=== PATIENT | male | born 1945 | race Caucasian/White ===

== ENCOUNTER 2017-06-25 08:11 | Emergency (ER) | payer MEDICARE, BC ==
--- NOTE | 2017-06-25 14:17 | CT ---
Head CT Technique: Multiple axial sections through the brain were obtained. Intravenous contrast was not utilized. Comparison: No previous intracranial imaging. Findings: Ventricles along with basal cisterns and sulci over the convexities are mildly prominent. Minimal diminished density noted within the periventricular white matter compatible with very slight small vessel ischemic demyelination change. No other abnormal parenchymal densities are seen. No evidence of intracranial hemorrhage. No midline shift or mass effect is seen. Atherosclerotic calcification is seen within the vertebral vessels and carotid siphon. Mild mucosal thickening is seen within the maxillary and ethmoid sinuses as well as frontal sinus compatible with mild chronic sinusitis. No acute calvarial abnormality is seen. Impression: 1. Mild senescent change as described above. 2. Mild chronic-appearing sinusitis. Diagnostic code #2 I agree with preliminary report issued by [facility] ([facility] preliminary report dictated on 06/25/17, 10:21 AM Central Time),
== END 2017-06-25 10:42 ==
LOC: JD.ED 08:11
DX: R42 Dizziness and giddiness (principal)
CPT/HCPCS: 36415; 70450; 80053; 84484; 85025; 99284; A9270; 99283

== ENCOUNTER 2019-06-22 20:44 | Emergency (ER) | payer MEDICARE, BC ==
[2019-06-22] MEDS ORDERED: cefTRIAXone 1 GM Vial IM ONE (22:27)
[2019-06-22] MEDS ORDERED: Triamcinolone Acetonide 40 MG/ML 1 ML MDV INJECT ONE (22:27)
--- NOTE | 2019-06-22 22:33 | EDM.PDOC ---
ED HPI GENERAL MEDICAL PROBLEM - General Chief Complaint: Respiratory Problem Stated Complaint: COUGHING/SOB Time Seen by Provider: 06/22/19 21:56 Source of Information: Reports: Patient History Limitations: Reports: No Limitations - History of Present Illness INITIAL COMMENTS - FREE TEXT/NARRATIVE: Vicious unfortunate 73-year-old male who presents emergency department complaining of cough for 2 weeks. Patient reports his sinus pressure and postnasal drip and cough for the past 2 weeks. Patient ports assuming he coughs so hard he "lost his breath" C and no vomiting no fever or chills no chest pain positive productive yellow sputum - Related Data Allergies Allergy/AdvReac Type Severity Reaction Status Date / Time No Known Allergies Allergy Verified 06/25/17 12:25 Home Meds: Home Meds Cefdinir 300 mg PO BID #14 capsule 06/22/19 [Rx] Past Medical History Cardiovascular History: Reports: High Cholesterol, Hypertension Other Neuro History: stroke with left side weakness Social & Family History - Tobacco Use Smoking Status *Q: Never Smoker - Caffeine Use Caffeine Use: Reports: Coffee, Tea - Recreational Drug Use Recreational Drug Use: No ED ROS GENERAL - Review of Systems Review Of Systems: See Below Constitutional: Denies: Fever, Chills HEENT: Reports: Rhinitis Respiratory: Reports: Cough, Sputum ED EXAM, GENERAL - Physical Exam Exam: See Below Exam Limited By: No Limitations General Appearance: Alert, WD/WN, Mild Distress Ears: Other (Bilateral TMs dull) Nose: Normal Inspection, Normal Mucosa, No Blood, Other (Bilateral maxillary sinus positive transillumination) Throat/Mouth: Other (Mild posterior pharynx erythema with postnasal drainage) Neck: Normal Inspection, Supple, Non-Tender, Full Range of Motion Respiratory/Chest: No Respiratory Distress, Lungs Clear, Normal Breath Sounds, No Accessory Muscle Use, Chest Non-Tender Cardiovascular: Normal Peripheral Pulses, Regular Rate, Rhythm, No Edema, No Gallop, No JVD, No Murmur, No Rub GI/Abdominal: Normal Bowel Sounds, Soft, Non-Tender, No Organomegaly, No Distention, No Abnormal Bruit, No Mass Back Exam: Normal Inspection, Full Range of Motion, NT Extremities: Normal Inspection, Normal Range of Motion, Non-Tender, Normal Capillary Refill, No Pedal Edema Neurological: Alert, Oriented Psychiatric: Normal Affect Skin Exam: Warm, Dry, No Rash Course - Vital Signs Last Recorded V/S: Last Vital Signs Temp 98.6 F 06/22/19 21:51 Pulse 66 06/22/19 21:51 Resp 20 06/22/19 21:51 BP 165/72 H 06/22/19 21:51 Pulse Ox 96 06/22/19 21:51 - Orders/Labs/Meds Orders: Active Orders 24 hr Category Date Time Status Chest 2V [CR] Stat Exams 06/22/19 22:08 Taken Triamcinolone Acetonide [Kenalog-40] Med 06/22/19 22:27 Once 40 mg INJECT ONETIME ONE cefTRIAXone [Rocephin] Med 06/22/19 22:27 Once 1 gm IM ONETIME ONE - Re-Assessments/Exams Free Text/Narrative Re-Assessment/Exam: 06/22/19 22:30 Chest x-ray interpreted by me MEL Departure - Departure Time of Disposition: 22:30 Disposition: Home, Self-Care 01 Condition: Good Clinical Impression: Sinusitis Qualifiers: Sinusitis location: unspecified location Chronicity: acute Recurrence: not specified as recurrent Qualified Code(s): J01.90 - Acute sinusitis, unspecified - Discharge Information Prescriptions: Cefdinir 300 mg PO BID #14 capsule Referrals: Gray Hart MD [Primary Care Provider] - Additional Instructions: Home, rest, adequate fluids, Robitussin as needed for cough, return as needed for worsening condition Sepsis Event Note - Evaluation Sepsis Screening Result: No Definite Risk - Focused Exam Vital Signs: Vital Signs Temp Pulse Resp BP Pulse Ox 06/22/19 21:51 98.6 F 66 20 165/72 H 96 Date Exam was Performed: 06/22/19 Time Exam was Performed: 22:28 - My Orders Last 24 Hours: My Active Orders 06/22/19 22:08 Chest 2V [CR] Stat 06/22/19 22:27 Triamcinolone Acetonide [Kenalog-40] 40 mg INJECT ONETIME ONE cefTRIAXone [Rocephin] 1 gm IM ONETIME ONE - Assessment/Plan Last 24 Hours: My Active Orders 06/22/19 22:08 Chest 2V [CR] Stat 06/22/19 22:27 Triamcinolone Acetonide [Kenalog-40] 40 mg INJECT ONETIME ONE cefTRIAXone [Rocephin] 1 gm IM ONETIME ONE
[2019-06-22] MEDS ORDERED: Lidocaine 1% 10 ML MDV ONE (22:39)
--- NOTE | 2019-06-23 07:25 | CR ---
Chest: Two views of the chest are obtained. Comparison: No prior chest imaging. Heart size and mediastinum are normal. Lungs are clear. Bony structures are unremarkable. Impression: 1. Nothing acute is seen on two-view chest x-ray. Diagnostic code #1 This report was dictated in [place] Standard Time
== END 2019-06-22 23:03 | disposition home or self-care (01) ==
LOC: JD.ED 20:44
DX: J01.90 Acute sinusitis, unspecified (principal); I10 Essential (primary) hypertension
CPT/HCPCS: 71046; 99283; J0696; J2001; J3301

== ENCOUNTER 2024-02-05 12:58 | Emergency (ER) | payer MEDICARE ==
[2024-02-05 14:07] LABS: BASOPHILS PERCENT AUTO 0.2 % (0.0-1.0); EOSINOPHILS PERCENT AUTO 0.4 % (0.0-6.0); HEMOGLOBIN 13.8 gm/dl (14.0-18.0); IMMATURE GRAN ABSOLUTE AUTO 0.02 K/mm3 (0.00-0.05); IMMATURE GRAN PERCENT AUTO 0.2 % (0.0-0.4); LYMPHOCYTES ABSOLUTE AUTO 0.8 K/mm3 (1.0-4.8); LYMPHOCYTES PERCENT AUTO 7.3 % (24.0-44.0); MEAN CORPUSCULAR HEMOGLOBIN 34.1 pg (28.0-32.0); MEAN CORPUSCULAR HGB CONC 34.5 g/dl (32.0-36.0); MEAN CORPUSCULAR VOLUME 98.8 fl (83.0-99.0); MONOCYTES ABSOLUTE AUTO 0.6 K/mm3 (0.0-0.8); MONOCYTES PERCENT AUTO 5.8 % (0.0-8.0); NEUTROPHILS PERCENT AUTO 86.1 % (41.0-71.0); PLATELET COUNT,PLT 218 K/mm3 (150-400); RED BLOOD CELL COUNT 4.05 M/mm3 (4.52-5.90); WHITE BLOOD CELL COUNT,WBC 10.48 K/mm3 (3.9-11.3)
[2024-02-05] MEDS: Ondansetron 4 MG/2 ML SDV IVPUSH ONE (14:22)
[2024-02-05 14:27] LABS: A/G RATIO 1.2 (1-2); ALBUMIN 3.8 g/dl (3.4-5.0); ANION GAP 12.9 (5-15); BILIRUBIN TOTAL 0.9 mg/dL (0.2-1.0); BUN/CREATININE RATIO 18.2 (14-18); CALCIUM 9.5 mg/dL (8.5-10.1); CREATININE 1.1 mg/dL (0.7-1.3); EST CRCL DRUG DOSING (CG) 51.74 mL/min; MAGNESIUM 2.2 mg/dL (1.8-2.4); POTASSIUM,K 3.9 mEq/L (3.5-5.1); PROTEIN TOTAL,TP 7.1 g/dl (6.4-8.2)
[2024-02-05] MEDS: Iopamidol 755 Mg/ML 100 ML Bottle IVPUSH ONE (14:40)
[2024-02-05] MEDS: Sodium Chloride 0.9% 10 ML Syringe FLUSH ONE (14:40)
[2024-02-05] MEDS: Morphine 2 MG/ML SYRINGE IVPUSH ONE (15:50)
[2024-02-05 17:58] LABS: APPEARANCE,URINE CLEAR (Clear); BILIRUBIN,URINE NEGATIVE (Negative); COLOR,URINE YELLOW (Yellow); GLUCOSE,URINE NEGATIVE (Negative); KETONES,URINE NEGATIVE (Negative); LEUKOCYTE ESTERASE,URINE NEGATIVE (Negative); NITRITE,URINE NEGATIVE (Negative); OCCULT BLOOD,URINE TRACE-LYSED (Negative); PROTEIN,URINE NEGATIVE (Negative); UROBILINOGEN,URINE 0.2 (0.2-1.0)
[2024-02-05 18:07] LABS: WBC,URINE 0-5 /hpf (0-5)
[2024-02-05 18:08] LABS: BACTERIA,URINE FEW /hpf (FEW); EPITHELIAL CELLS,URINE 0-5 /hpf (0-5); MUCUS,URINE RARE /hpf (FEW)
== END 2024-02-05 19:50 | disposition left against medical advice (07) ==
LOC: JD.ED 12:58
DX: K56.609 Unspecified intestinal obstruction, unspecified as to partial versus complete obstruction (principal); K42.9 Umbilical hernia without obstruction or gangrene; I10 Essential (primary) hypertension
CPT/HCPCS: 36415; 74176; 74177; 80053; 81001; 83690; 83735; 85025; 96374; 99285; J2405; J3490; Q9967